=== PATIENT | male | born 1965 | race Two or more races ===

== ENCOUNTER 2023-12-14 10:50 | Emergency (ER) | payer SELFPAY ==
[2023-12-14 10:52] VITALS: BP 142/77; PULSE 99; RESP 18; TEMP 36.6; O2SAT 97; BMI 28.8
--- NOTE | 2023-12-14 11:01 | PC.NURSE ---
DR MAHAJAN AT BEDSIDE
--- NOTE | 2023-12-14 11:04 | HMH.EDGENADL ---
Discharge Plan Disposition Patient Disposition: Left Against Medical Advice Clinical Impressions Clinical Impression: Opiate overdose Discharge ED Provider: Dereje Bowden General Adult HPI General Chief complaint: Overdose Stated complaint: Possible overdose Time Seen by Provider: 12/14/23 11:00 Mode of Arrival: EMS Source of Information: Patient and EMS Limitations: No Limitations Description of Symptoms (Recalled from ER Triage Doc. by RN): unresponsive upon EMS arrival. 2mg of narcan given. pt alert and oriented now. fsbs [id number] History of Present Illness HPI narrative: Patient is a 58-year-old male states that he was taking prescribed oxycodone 5 mg 3 times a day and that he did not intentionally overdose on any medications however EMS was called for unresponsive patient he was given 2 mg of Narcan and immediately woke up. Patient is now alert and oriented again he denies any other drug ingestion. Denies any other symptoms also denies any other past medical history to me. [facility] Disclaimer: The information contained in this section may have been updated after the patient was seen, as this information can be updated by other users. Social History Smoking Status: Current every day smoker alcohol intake: never current occupational status: other Travel in the last 8 weeks: None ROS Obtained: Yes All systems reviewed & no additional complaints except as documented Physical Exam General General appearance: alert and in no apparent distress Respiratory Respiratory exam: Present normal lung sounds bilaterally; Absent respiratory distress Cardiovascular Cardiovascular exam: Present regular rate and normal rhythm Neurological Exam Neurological exam: Present alert and oriented X3 Medical Decision Making Jacinto Inquiry Pt receiving controlled substance: No Vital Signs: 12/14/23 10:52 Temperature 98 F Temperature Source Oral Pulse Rate [Right Radial] 99 H Respiratory Rate 18 Blood Pressure [Right Arm] 142/77 H Blood Pressure Mean [Right Arm] 98 02 Sat by Pulse Oximetry 97 Oxygen Delivery Method Room Air Medical Decision Narrative: Patient is a 58-year-old male presenting today after what appears to be an accidental opiate overdose. He denies taking anything outside of what he was prescribed however unlikely that 5 mg 3 times daily of oxycodone would have caused this response. I advised that he stay here for 2 hours for observation in ED observation order was placed at 11 AM. My rationale behind this is that if he took a long-acting opiate that we would like to observe him during the time that Narcan would be out of his system. Will reassess shortly. Reassessment 11:17 AM patient decided to leave AGAINST MEDICAL ADVICE understand he could have disability or . He was awake alert oriented had capacity to make his own medical decisions upon walking out of the emergency department. Critical Care Critical Care Time Critical Care Time: No
--- NOTE | 2023-12-14 11:11 | PC.NURSE ---
Pt provided with portable phone to make phone call
--- NOTE | 2023-12-14 11:18 | PC.NURSE ---
pt has walked out of Emergency Room. REfuses to stay. States he called a ride. He is alert and oriented. Denies any [place]. educated by MD regarding leaving AMA and possible risks.
[2023-12-14 11:20] VITALS: BP 0/0; PULSE 0; RESP 0; TEMP -17.7; TEMP 0
== END 2023-12-14 11:20 | disposition left against medical advice (07) ==
LOC: ER 13:31
PROVIDERS: Emergency Provider Student in an Organized Health Care Education/Training Program
DX: T40.601A Poisoning by unspecified narcotics, accidental (unintentional), initial encounter (principal); F17.210 Nicotine dependence, cigarettes, uncomplicated
CPT/HCPCS: 99282